=== PATIENT | female | born 1970 | race Caucasian/White ===

== ENCOUNTER → 2017-02-23 | Outpatient (CLI) | payer BC ==
--- NOTE | 2017-02-24 06:40 | REP ---
PARANASAL SINUSES: Four views paranasal sinuses performed. There may be some minimal scattered mucosal thickening in the frontal and ethmoid sinuses. No air fluid levels are seen. Adenoids are not enlarged. Nasopharyngeal airway is widely patent. IMPRESSION: Possible minimal mucosal thickening in the frontal and ethmoid sinuses. Signed by Suresh Scales MD 02/24/2017 07:48 P
== END ==
LOC: M WUC 09:45
PROVIDERS: ATTEND Physician Assistant
DX: L03.211 Cellulitis of face (principal)

== ENCOUNTER → 2017-09-16 | Outpatient (CLI) | payer BC ==
[2017-09-16 09:29] LABS: BASO # 0.1 10^3/uL (0.0-0.2); BASO % 0.8 % (0.0-1.0); EOS # 0.1 10^3/uL (0.0-0.50); EOS % 1.3 % (0.0-3.0); IMMATURE GRANULOCYTE % 0.8 % (0-0); LYMPH # 1.9 10^3/uL (1.5-4.5); LYMPH % 24.3 % (24.0-44.0); MEAN CORPUSCULAR HEMOGLOBIN 31.3 pg (27.0-33.0); MEAN CORPUSCULAR HGB CONC 33.3 g/dl (32.0-36.5); MEAN CORPUSCULAR VOLUME 93.8 fl (80.0-96.0); MONO # 0.4 10^3/uL (0.0-0.8); MONO % 4.4 % (0.0-5.0); NEUTROPHILS # 5.5 10^3/uL (1.8-7.7); NEUTROPHILS % 68.4 % (36.0-66.0); PLATELET COUNT, AUTOMATED 278 10^3/uL (150-450); RED CELL DISTRIBUTION WIDTH 13.6 % (11.5-14.5)
[2017-09-16 13:40] LABS: ALBUMIN 3.9 GM/DL (3.2-5.2); ALBUMIN/GLOBULIN RATIO 1.34 (1.00-1.93); ALKALINE PHOSPHATASE 57 U/L (45-117); ALT/SGPT 21 U/L (12-78); ANION GAP 5 MEQ/L (8-16); AST/SGOT 9 U/L (7-37); BILIRUBIN,TOTAL 0.4 MG/DL (0.2-1.0); BLOOD UREA NITROGEN 6 MG/DL (7-18); CALCIUM LEVEL 9.1 MG/DL (8.5-10.1); CARBON DIOXIDE LEVEL 28 MEQ/L (21-32); CHLORIDE LEVEL 109 MEQ/L (98-107); CHOLESTEROL LEVEL 189 MG/DL (<200); CREATININE FOR GFR 0.72 MG/DL (0.55-1.02); GLOMERULAR FILTRATION RATE > 60.0 (>58); GLUCOSE, FASTING 104 MG/DL (70-105); POTASSIUM SERUM 4.8 MEQ/L (3.5-5.1); SODIUM LEVEL 142 MEQ/L (136-145); TOTAL PROTEIN 6.8 GM/DL (6.4-8.2); TRIGLYCERIDES LEVEL 95 MG/DL (<150)
== END ==
LOC: M WUC 08:24
PROVIDERS: ATTEND Physician Assistant Medical
DX: Z00.00 Encounter for general adult medical examination without abnormal findings (principal); Z83.3 Family history of diabetes mellitus

== ENCOUNTER → 2017-10-30 | Outpatient (REF) | payer BC ==
[2017-11-02 14:11] LABS: HPV HYBRID CAPTURE II Negative (Negative)
== END ==
LOC: M LAB REF 13:40
DX: Z12.4 Encounter for screening for malignant neoplasm of cervix (principal)
CPT/HCPCS: G0123

== ENCOUNTER → 2019-06-19 | Outpatient (CLI) | payer BC ==
[2019-06-19 09:58] LABS: BASO # 0.1 10^3/uL (0.0-0.2); BASO % 0.9 % (0.0-1.0); EOS # 0.1 10^3/uL (0.0-0.5); EOS % 1.5 % (0.0-3.0); HEMATOCRIT 44.4 % (36.0-47.0); HEMOGLOBIN 14.7 g/dl (12.0-15.5); LYMPH # 2.3 10^3/uL (1.5-5.0); MEAN CORPUSCULAR HGB CONC 33.1 g/dl (32.0-36.5); MEAN CORPUSCULAR VOLUME 93.7 fl (80.0-96.0); MONO # 0.6 10^3/uL (0.0-0.8); MONO % 6.6 % (0.0-5.0); NEUTROPHILS # 6.1 10^3/uL (1.5-8.5); NEUTROPHILS % 65.2 % (36.0-66.0); PLATELET COUNT, AUTOMATED 278 10^3/uL (150-450); RED BLOOD COUNT 4.74 10^6/uL (4.00-5.40); WHITE BLOOD COUNT 9.3 10^3/uL (4.0-10.0)
[2019-06-19 10:21] LABS: ALBUMIN 4.3 GM/DL (3.2-5.2); ALT/SGPT 19 U/L (12-78); BILIRUBIN,TOTAL 0.2 MG/DL (0.2-1.0); BLOOD UREA NITROGEN 8 MG/DL (7-18); CALCIUM LEVEL 10.1 MG/DL (8.5-10.1); CARBON DIOXIDE LEVEL 29 MEQ/L (21-32); CHLORIDE LEVEL 106 MEQ/L (98-107); CHOLESTEROL LEVEL 193 MG/DL (<200); CHOLESTEROL RISK RATIO 3.641 (<5); CREATININE FOR GFR 0.73 MG/DL (0.55-1.30); GLOMERULAR FILTRATION RATE > 60.0 (>58); GLUCOSE, FASTING 94 MG/DL (70-100); HDL CHOLESTEROL 53 MG/DL (>40); LDL CHOLESTEROL 109 MG/DL (<100); NON-HDL-C 140 MG/DL; POTASSIUM SERUM 5.5 MEQ/L (3.5-5.1); SODIUM LEVEL 137 MEQ/L (136-145); TOTAL PROTEIN 6.8 GM/DL (6.4-8.2); TRIGLYCERIDES LEVEL 155 MG/DL (<150)
== END ==
LOC: M WUC 08:30
PROVIDERS: ATTEND Family Medicine
DX: Z00.00 Encounter for general adult medical examination without abnormal findings (principal); E55.9 Vitamin D deficiency, unspecified

== ENCOUNTER → 2020-07-04 | Outpatient (REF) | payer BC | LOC: M LAB REF 13:00 | PROVIDERS: ATTEND Family Medicine | DX: Z12.4 Encounter for screening for malignant neoplasm of cervix (principal); R87.612 Low grade squamous intraepithelial lesion on cytologic smear of cervix (LGSIL) | CPT/HCPCS: 87624; G0123 ==

== ENCOUNTER → 2021-06-29 | Outpatient (REF) | payer BC ==
[2021-06-29 11:19] LABS: ALBUMIN 4.2 GM/DL (3.2-5.2); ALT/SGPT 24 U/L (12-78); BILIRUBIN,TOTAL 0.5 MG/DL (0.2-1.0); BLOOD UREA NITROGEN 10 MG/DL (7-18); CARBON DIOXIDE LEVEL 27 MEQ/L (21-32); CHLORIDE LEVEL 101 MEQ/L (98-107); CHOLESTEROL LEVEL 175 MG/DL (<200); CHOLESTEROL RISK RATIO 3.645 (<5); CREATININE FOR GFR 0.65 MG/DL (0.55-1.30); GLOMERULAR FILTRATION RATE > 60.0 (>58); GLUCOSE, FASTING 103 MG/DL (70-100); HDL CHOLESTEROL 48 MG/DL (>40); LDL CHOLESTEROL 96 MG/DL (<100); NON-HDL-C 127 MG/DL; POTASSIUM SERUM 4.5 MEQ/L (3.5-5.1); SODIUM LEVEL 138 MEQ/L (136-145); TOTAL 25(OH) VITAMIN D 26.2 NG/ML (30.0-100.0); TOTAL PROTEIN 6.8 GM/DL (6.4-8.2); TRIGLYCERIDES LEVEL 157 MG/DL (<150)
[2021-06-29 11:53] LABS: BASO # 0.1 10^3/uL (0.0-0.2); BASO % 0.8 % (0.0-1.0); EOS # 0.2 10^3/uL (0.0-0.5); HEMATOCRIT 44.8 % (36.0-47.0); HEMOGLOBIN 14.7 g/dl (12.0-15.5); LYMPH # 2.3 10^3/uL (1.5-5.0); MEAN CORPUSCULAR HEMOGLOBIN 30.4 pg (27.0-33.0); MEAN CORPUSCULAR HGB CONC 32.8 g/dl (32.0-36.5); MEAN CORPUSCULAR VOLUME 92.6 fl (80.0-96.0); MONO # 0.6 10^3/uL (0.0-0.8); MONO % 5.3 % (2.0-8.0); NEUTROPHILS # 7.2 10^3/uL (1.5-8.5); NEUTROPHILS % 69.3 % (36.0-66.0); PLATELET COUNT, AUTOMATED 265 10^3/uL (150-450); RED BLOOD COUNT 4.84 10^6/uL (4.00-5.40); WHITE BLOOD COUNT 10.4 10^3/uL (4.0-10.0)
== END ==
LOC: M WUC 09:42
PROVIDERS: ATTEND Family Medicine
DX: E78.2 Mixed hyperlipidemia (principal); E55.9 Vitamin D deficiency, unspecified; F17.211 Nicotine dependence, cigarettes, in remission

== ENCOUNTER → 2022-02-26 | Outpatient (CLI) | payer BC | LOC: M WUC 08:19 | PROVIDERS: ATTEND Family Medicine | DX: R73.03 Prediabetes (principal) ==

== ENCOUNTER → 2022-08-05 | Outpatient (CLI) | payer BC ==
[~2022-08-05] MED LIST: ALBU8.5H; B-122500 PO; GABA-282 PO; MULT-90 PO; OMEP-173 PO; VITA200016 PO
== END ==
LOC: M LABSMTC 11:14
PROVIDERS: ATTEND Anesthesiology
DX: Z01.818 Encounter for other preprocedural examination (principal); Z11.52 Encounter for screening for COVID-19

== ENCOUNTER 2022-08-08 11:14 | Day surgery (SDC) | payer BC ==
[~2022-08-08] VITALS: Ht 165.1 cm; Wt 59.3 kg
[~2022-08-08 11:14] MED LIST changes: +NS 1,000 ML IV ONE
[2022-08-08] MEDS ORDERED: LIDOCAINE 2% 100MG/5ML SDV (FOR ANES.) As Ordered ONE (12:40)
[2022-08-08] MEDS ORDERED: propofoL 200 MG/20 ML VIAL As Ordered ONE (12:40)
[2022-08-08 13:19] VITALS: BP 117/67
== END 2022-08-08 13:27 | disposition home or self-care (01) ==
LOC: M OPP 11:14
PROVIDERS: ATTEND Surgery
DX: Z12.11 Encounter for screening for malignant neoplasm of colon (principal); D12.3 Benign neoplasm of transverse colon; K63.5 Polyp of colon; K57.30 Diverticulosis of large intestine without perforation or abscess without bleeding; F17.200 Nicotine dependence, unspecified, uncomplicated; Z88.1 Allergy status to other antibiotic agents; Z88.0 Allergy status to penicillin; Z79.51 Long term (current) use of inhaled steroids; Z79.899 Other long term (current) drug therapy

== ENCOUNTER → 2022-09-21 | Outpatient (CLI) | payer BC ==
[~2022-09-21] MED LIST changes: -NS 1,000 ML IV ONE
[2022-09-21 10:11] LABS: HEMOGLOBIN A1c 5.5 % (4.0-6.0)
== END ==
LOC: M WUC 08:28
PROVIDERS: ATTEND Family Medicine
DX: R73.03 Prediabetes (principal)

== ENCOUNTER → 2023-04-29 | Outpatient (CLI) | payer BC ==
[2023-04-29 12:31] LABS: BASO # 0.1 10^3/uL (0.0-0.2); BASO % 1.3 % (0.0-1.0); EOS # 0.4 10^3/uL (0.0-0.5); EOS % 4.3 % (0.0-3.0); HEMATOCRIT 47.8 % (36.0-47.0); HEMOGLOBIN 15.4 g/dl (12.0-15.5); LYMPH # 2.9 10^3/uL (1.5-5.0); LYMPH % 30.6 % (24.0-44.0); MEAN CORPUSCULAR HEMOGLOBIN 29.8 pg (27.0-33.0); MEAN CORPUSCULAR HGB CONC 32.2 g/dl (32.0-36.5); MEAN CORPUSCULAR VOLUME 92.5 fl (80.0-96.0); MONO # 0.5 10^3/uL (0.0-0.8); MONO % 5.6 % (2.0-8.0); NEUTROPHILS # 5.4 10^3/uL (1.5-8.5); NEUTROPHILS % 57.7 % (36.0-66.0); PLATELET COUNT, AUTOMATED 277 10^3/uL (150-450); RED BLOOD COUNT 5.17 10^6/uL (4.00-5.40); WHITE BLOOD COUNT 9.4 10^3/uL (4.0-10.0)
[2023-04-29 13:09] LABS: ALBUMIN 4.2 G/DL (3.2-5.2); ALKALINE PHOSPHATASE 50 U/L (46-116); ALT/SGPT 17 U/L (7.0-40); AST/SGOT < 8 U/L (<34); BILIRUBIN,TOTAL 0.3 MG/DL (0.3-1.2); BLOOD UREA NITROGEN 11 MG/DL (9-23); CALCIUM LEVEL 11.7 MG/DL (8.5-10.1); CARBON DIOXIDE LEVEL 30 MMOL/L (20-31); CHLORIDE LEVEL 105 MMOL/L (98-107); CHOLESTEROL LEVEL 169 MG/DL (<200); CHOLESTEROL RISK RATIO 2.77 (<5); CREATININE FOR GFR 0.64 MG/DL (0.55-1.30); GLOMERULAR FILTRATION RATE > 60.0 (>51); GLUCOSE, FASTING 96 MG/DL (60-100); HDL CHOLESTEROL 60.9 MG/DL (>40); LDL CHOLESTEROL 80.5 MG/DL (<100); NON-HDL-C 108.1 MG/DL; POTASSIUM SERUM 4.7 MMOL/L (3.5-5.1); SODIUM LEVEL 140 MMOL/L (136-145); TOTAL PROTEIN 6.9 G/DL (5.7-8.2); TRIGLYCERIDES LEVEL 138 MG/DL (<150)
[2023-04-29 13:28] LABS: HEMOGLOBIN A1c 5.9 % (4.0-6.0)
== END ==
LOC: M WUC 09:10
PROVIDERS: ATTEND Family Medicine
DX: R73.03 Prediabetes (principal)

== ENCOUNTER → 2023-08-20 | Outpatient (CLI) | payer BC | LOC: M WHC 08:59 | PROVIDERS: ATTEND Family Medicine | DX: Z12.31 Encounter for screening mammogram for malignant neoplasm of breast (principal) ==

== ENCOUNTER → 2023-08-28 | Outpatient (CLI) | payer BC | LOC: M WHC 08:00 | PROVIDERS: ATTEND Family Medicine | DX: Z12.31 Encounter for screening mammogram for malignant neoplasm of breast (principal) ==

== ENCOUNTER → 2023-09-10 | Outpatient (CLI) | payer BC | LOC: M PLAIMG 11:24 | PROVIDERS: ATTEND Nurse Practitioner Family | DX: R05.9 Cough, unspecified (principal); R06.02 Shortness of breath ==

== ENCOUNTER → 2024-12-15 | Outpatient (CLI) | payer BC ==
[~2024-12-15] MED LIST changes: +GABA-1172 PO; -GABA-282 PO
[2024-12-15 15:27] LABS: BASO # 0.1 10^3/uL (0.0-0.2); EOS # 0.5 10^3/uL (0.0-0.5); EOS % 5.7 % (0.0-3.0); HEMATOCRIT 51.4 % (36.0-47.0); HEMOGLOBIN 16.1 g/dl (12.0-15.5); LYMPH # 2.6 10^3/uL (1.5-5.0); LYMPH % 29.8 % (24.0-44.0); MEAN CORPUSCULAR HEMOGLOBIN 29.1 pg (27.0-33.0); MEAN CORPUSCULAR HGB CONC 31.3 g/dl (32.0-36.5); MEAN CORPUSCULAR VOLUME 92.9 fl (80.0-96.0); MONO # 0.5 10^3/uL (0.0-0.8); MONO % 5.7 % (2.0-8.0); NEUTROPHILS % 57.5 % (36.0-66.0); PLATELET COUNT, AUTOMATED 267 10^3/uL (150-450); RED BLOOD COUNT 5.53 10^6/uL (4.00-5.40); WHITE BLOOD COUNT 8.7 10^3/uL (4.0-10.0)
[2024-12-15 15:34] LABS: ALBUMIN 4.2 G/DL (3.2-5.2); ALKALINE PHOSPHATASE 54 U/L (35-104); ALT/SGPT 17 U/L (7.0-40); AST/SGOT 11 U/L (<34); BILIRUBIN,TOTAL 0.3 MG/DL (0.3-1.2); BLOOD UREA NITROGEN 12 MG/DL (9-23); CALCIUM LEVEL 10.2 MG/DL (8.5-10.1); CARBON DIOXIDE LEVEL 33 MMOL/L (20-31); CHLORIDE LEVEL 104 MMOL/L (98-107); CHOLESTEROL LEVEL 204 MG/DL (<200); CREATININE FOR GFR 0.72 MG/DL (0.55-1.30); GLOMERULAR FILTRATION RATE > 60.0 (>51); GLUCOSE, FASTING 117 MG/DL (60-100); HDL CHOLESTEROL 72.8 MG/DL (>40); NON-HDL-C 131.2 MG/DL; POTASSIUM SERUM 4.5 MMOL/L (3.5-5.1); SODIUM LEVEL 143 MMOL/L (136-145); TRIGLYCERIDES LEVEL 116 MG/DL (<150)
[2024-12-15 17:48] LABS: HEMOGLOBIN A1c 6.1 % (4.0-6.0)
== END ==
LOC: M WUC 08:35
PROVIDERS: ATTEND Family Medicine
DX: R73.03 Prediabetes (principal)